=== PATIENT | female | born 1975 | race African-American/Black ===

== ENCOUNTER 2022-10-14 15:11 | Emergency (ER) | payer OTHER ==
[~2022-10-14] VITALS: Ht 162.6 cm; Wt 137.0 kg
[2022-10-14 16:00] VITALS: BP 140/90
[2022-10-14 16:31] LABS: BASOPHILS % 0.5 % (0.0-2.0); HEMATOCRIT. 26.8 % (36.0-48.0); HEMOGLOBIN. 7.7 g/dL (12.0-16.0); LYMPHOCYTES % 26.8 % (20.0-50.0); MEAN CORPUSCULAR HEMOGLOBIN 16.9 pg (28.0-32.0); MEAN PLATELET VOLUME 8.5 fl (7.4-10.4); NEUTROPHILS % 62.7 % (40.0-76.0); PLATELET 447 x1000/uL (130-400); RED BLOOD CELL COUNT 4.54 mill/uL (4.2-5.4); RED CELL DISTRIBUTION WIDTH 20.6 % (11.6-14.6)
[2022-10-14 16:40] LABS: CHLORIDE 107 mEq/L (98-107)
[2022-10-14 20:38] LABS: PLATELET ESTIMATE SLIGHTLY INCREASED
== END 2022-10-14 19:45 ==
LOC: ER 15:11
DX: R07.89 Other chest pain (principal); E11.9 Type 2 diabetes mellitus without complications
CPT/HCPCS: 36415; 71045; 80053; 82962; 83880; 84484; 85025; 93005; 99285